=== PATIENT | male | born 1955 | race Caucasian/White ===

== ENCOUNTER 2021-09-08 09:50 | Emergency (ER) | payer MEDICARE, SELFPAY ==
[2021-09-08] VITALS (14 sets, daily range): BP systolic 157–176; BP diastolic 105–134; PULSE 98–109; RESP 18–25; TEMP 36.7; O2SAT 98–100
--- NOTE | ~2021-09-08 | XR_ITS ---
XR chest 2V 09/08/2021 10:41 Indication: Shortness of breath. Procedure: 2 view chest Comparison: No prior studies for comparison. Findings: There is right lower lobe airspace disease. Small right pleural effusion. Cardiomegaly. Rig ht lung clear. Left lung clear. No pneumothorax. No acute osseous abnormality. Impression: 1: Right lower lobe airspace disease which may represent atelectasis and/or pneumonia. 2: Small right pleural effusion. Reviewed, dictated and finalized at location B. [employer] TE[employer] COACH Impression: 1: Right lower lobe airspace disease which may represent atelectasis and/or pne umonia. 2: Small right pleural effusion.
--- NOTE | 2021-09-08 10:02 | ECG_ITS ---
Measurements Intervals [place] Rate: 99 P: 37 MO: 162 QRS: 40 QRSD: 101 T: 62 QT: 372 QTc: 479 Interpretive Statements SINUS RHYTHM VENTRICULAR PREMATURE COMPLEX DELAYED PRECORDIAL R/S TRANSITION BORDERLINE T WAVE ABNORMALITY- HIGH LATERAL LEADS BORDERLINE ECG Electronically Signed On 09-08-2021 10:40:47 CRATING AND MOVING ESTIMATOR by Krzysztof Staton D.O.
[2021-09-08 10:33] LABS: Basophils Percent Auto 0.5 % (0.2-1.2); Eosinophils Absolute Auto 0.2 K/mm3 (0-0.3); Eosinophils Percent Auto 2.5 % (0-4.4); Hematocrit 39.2 % (42.0-52.0); Hemoglobin 12.4 g/dL (14.0-18.0); Immature Granulocyte Absolute 0.03 K/mm3 (0.00-0.031); Immature Granulocyte Percent A 0.4 % (0-0.5); Lymphocytes Absolute Auto 1.18 K/mm3 (0.9-3.2); Lymphocytes Percent Auto 14.6 % (18.3-44.2); Mean Corpuscular HGB Conc 31.6 g/dl (32-36); Mean Corpuscular Hemoglobin 27.9 pg (26-34); Mean Corpuscular Volume 88.1 fl (80-100); Mean Platelet Volume 11.2 fl (7.4-10.4); Monocytes Absolute Auto 0.9 K/mm3 (0.1-0.6); Monocytes Percent Auto 10.9 % (2.6-8.5); Neutrophils Absolute Auto 5.7 K/mm3 (1.3-6.7); Neutrophils Percent Auto 71.1 % (45.5-73.1); Platelet Count Result 171 k/mm3 (150-375); Red Blood Count 4.45 M/mm3 (4.6-6.20); Red Cell Distribution Width 16.6 % (11.5-14.5); White Blood Count 8.1 K/mm3 (4.5-10.0)
[2021-09-08 10:46] LABS: Alanine Aminotransferase 19 U/L (4-50); Albumin Level 4.3 g/dL (3.5-5.1); Alkaline Phosphatase 119 U/L (38-126); Anion Gap 9 mmol/L (8-16); Aspartate Amino Transferase 32 U/L (17-59); Bilirubin,Total 1.1 mg/dL (0.2-1.3); Blood Urea Nitrogen 25 mg/dL (9-20); Calcium 8.7 mg/dL (8.4-10.2); Carbon Dioxide 21 mmol/L (22-30); Chloride 101 mmol/L (98-107); Estimated CRCL calculation 70 ml/min; Estimated Glomerular Filt Rate > 60; Glucose 103 mg/dL (65-110); INR 1.3; Potassium 4.2 mmol/L (3.4-5.0); Prothrombin Time 16.4 Seconds (11.1-14.7); Sodium 131 mmol/L (137-145)
[2021-09-08 10:47] LABS: Partial Thromboplastin Time 28.9 SECONDS (22.3-36.8)
[2021-09-08 10:57] LABS: NT Pro B Type Natriuretic Pept 7760 pg/mL (5-100); Troponin I 0.027 ng/mL (0.000-0.034)
[2021-09-08] MEDS: FUROSEMIDE INJ 40 MG/4 ML VIAL IV PUSH (11:01)
--- NOTE | 2021-09-08 11:22 | ED.GENADULT ---
HPI - General Adult General Chief complaint: Shortness of Breath/Dyspnea Stated complaint: Leg swelling/SOB. Time Seen by Provider: 09/08/21 10:22 Source: patient Mode of arrival: ambulatory Limitations: no limitations History of Present Illness HPI narrative: Patient is a 66-year-old male presented with chief complaint of exacerbation of his CHF. Patient reports that he was diagnosed with CHF at [facility] on 08-21-2021. Patient states that he was prescribed lisinopril, 40 mg of Lasix and potassium supplement. Patient reports that the potassium supplements gave him swelling to his lips and a loopy feeling so he stopped taking both the potassium and the Lasix and only took his lisinopril. Patient reports that he attempted to call her provider from [facility] but did not return received any call back. He reports that he feels difficulty taking a deep breath as if there is a pressure obstructing his lungs from expanding fully. Patient also reports noticing swelling to his bilateral lower extremities. Patient denies feeling chest pain, fever, chills, nausea, vomiting, syncope, or neurologic with his. Related Data Home Medications Medication Instructions Recorded Confirmed furosemide 40 mg PO DAILY 09/08/21 lisinopril 20 mg PO DAILY 09/08/21 Allergies Allergy/AdvReac Type Severity Reaction Status Date / Time potassium chloride Allergy Swelling Verified 09/08/21 10:15 of Lip/Tongue/Throat Review of Systems Review of Systems: CONSTITUTIONAL: Denies fever, chills, or sweats. EYES: Denies visual changes, redness, or discharge. ENT: Denies rhinorrhea, congestion, sore throat, or otalgia. CARDIOVASCULAR: Denies chest pain, palpitations, or edema. RESPIRATORY: Reports shortness of breath denies cough GASTROINTESTINAL: Denies abdominal pain, nausea, vomiting, or diarrhea. GENITOURINARY: Denies dysuria or hematuria. SKIN: Denies rash or itching. MUSCULOSKELETAL: Reports lower extremity edema denies back pain, joint pain, or myalgia. NEUROLOGIC: Denies headache, numbness, dizziness, or weakness. PSYCHIATRIC: Denies anxiety or depression. Exam Narrative: GENERAL: Well-appearing, well-nourished, and in no acute distress. HEAD: Normocephalic, atraumatic. EYES: PERRLA and EOMI. ENT: Nares clear, no rhinorrhea or epistaxis. Mucous membranes moist.Bilateral TMs pearly chapa non bulging NECK: Supple. No adenopathy or masses. CHEST: Clear to auscultation.Work of breathing noted with any exertion. Few faint wheezes left sided. No rales or rhonchi. Speaks in clear sentences without difficulty. O2 sat 100% on room air. HEART: Regular rate and rhythm. No murmur heard. Normal peripheral pulses. ABDOMEN: Soft, nontender, nondistended, normal active bowel sounds. EXTREMITIES: Normal range of motion. No edema. SKIN: Warm, dry, no rash. NEURO: No focal deficits. Alert and oriented x3. PSYCH: Normal mood and affect. Course Vital Signs Vital signs: Vital Signs Temperature 98.0 F 09/08/21 09:56 Pulse Rate 102 H 09/08/21 09:56 Respiratory Rate 25 H 09/08/21 09:56 Blood Pressure 176/117 H 09/08/21 09:56 Pulse Oximetry 100 09/08/21 09:56 Temperature 98.0 F 09/08/21 09:56 Pulse Rate 109 H 09/08/21 15:30 Respiratory Rate 22 H 09/08/21 15:30 Blood Pressure 172/134 H 09/08/21 15:30 Pulse Oximetry 99 09/08/21 15:30 Medical Decision Making MDM Narrative Medical decision making narrative: Consult with Dr. Burleson regarding follow-up with patient for further management of his CHF. Dr. Burleson he states that he wants cardiology to be consulted in order to work with patient. Consult cardiology and spoke with [facility] [place] nurse practitioner who agrees to follow-up with patient. She is in agreement the patient should take his blood pressure medication and his furosemide at 40 mg daily and follow-up in the office. Patient is no longer short of breath he has had lots of urination and has been amb
[2021-09-08] MEDS: cloNIDine HCL 0.1 MG TABLET PO (14:19)
== END 2021-09-08 17:24 | disposition home or self-care (01) ==
PROVIDERS: Emergency Provider Emergency Medicine
DX: I50.9 Heart failure, unspecified (principal); I49.3 Ventricular premature depolarization; R94.31 Abnormal electrocardiogram [ECG] [EKG]; R91.8 Other nonspecific abnormal finding of lung field
CPT/HCPCS: 36415; 71046; 80053; 83880; 84484; 85025; 85610; 85730; 93005; 96374; 99284; A9270; J1940

== ENCOUNTER 2021-10-07 12:24 | Emergency (ER) | payer MEDICARE, SELFPAY ==
[2021-10-07 12:40] VITALS: BP 185/112; PULSE 100; RESP 20; TEMP 36.7; O2SAT 97
[2021-10-07 14:46] VITALS: BP 166/93; PULSE 101; TEMP 36.9; O2SAT 98
== END 2021-10-08 03:02 | disposition left against medical advice (07) ==
DX: Z53.21 Procedure and treatment not carried out due to patient leaving prior to being seen by health care provider (principal)
CPT/HCPCS: 99199